=== PATIENT | male | born 1965 | race Caucasian/White ===

== ENCOUNTER 2017-07-13 11:24 | Inpatient (IN) | payer SELFPAY ==
[~2017-07-13] VITALS: Ht 175.3 cm; Wt 79.4 kg
[2017-07-13 12:02] LABS: GLUCOSE,POINT OF CARE 144 MG/DL (70-110)
[2017-07-13 12:15] LABS: EOSINOPHILS % (AUTO) 1.5 % (1.0-6.0); HEMOGLOBIN 14.6 g/dL (13.5-17.5); LYMPHOCYTES # (AUTO) 2.1 K/uL (1.0-4.8); LYMPHOCYTES % (AUTO) 27.1 % (22.0-44.0); MEAN CORPUSCULAR HEMOGLOBIN 30.2 pg (26.0-34.0); MEAN CORPUSCULAR HGB CONC 34.8 G/dL (31.0-37.0); MEAN CORPUSCULAR VOLUME 87 fL (80-100); MONOCYTES # (AUTO) 0.7 K/uL (0.1-1.0); MONOCYTES % (AUTO) 9.2 % (2.0-9.0); NEUTROPHILS # (AUTO) 4.6 K/uL (1.8-7.7); NEUTROPHILS % (AUTO) 61.2 % (40.0-70.0); PLATELET COUNT (AUTO) 179 K/uL (150-450); RED BLOOD CELL COUNT(AUTO) 4.84 MIL/uL (4.50-5.90); RED CELL DISTRIBUTION WIDTH 12.8 % (11.5-14.5); WHITE BLOOD COUNT (AUTO) 7.6 K/uL (4.5-11.0)
[2017-07-13 12:26] LABS: ANION GAP 9 mmol/L (8-16); CALCIUM, TOTAL 9.1 mg/dL (8.8-10.5); CARBON DIOXIDE 26 mmol/L (22-29); CHLORIDE 102 mmol/L (98-107); CREATININE 0.82 mg/dL (0.60-1.30); GLOMERULAR FILTR. RATE CALC > 60 mL/min (>60); POTASSIUM 3.5 mmol/L (3.5-5.1); SODIUM SERUM 137 mmol/L (136-145); UREA NITROGEN, BLOOD 18 mg/dL (7-18)
[2017-07-13 12:32] LABS: ALANINE AMINOTRANSFERASE 59 U/L (12-78); ALBUMIN 4.3 g/dL (3.4-5.0); ASPARTATE AMINOTRANSFERASE 46 U/L (15-37); BILIRUBIN,TOTAL 0.8 mg/dL (0.1-1.0)
[2017-07-13] MEDS ORDERED: LORazepam 2 MG TABLET PO ONE (15:15)
[2017-07-13] MEDS ORDERED: RisperiDONE 1 MG TABLET PO ONE (15:15)
[2017-07-13] MEDS ORDERED: HALOPERIDOL 5 MG TABLET PO PRN (15:45)
[2017-07-13] MEDS ORDERED: LORazepam 2 MG TABLET PO PRN (15:45)
[2017-07-13] MEDS ORDERED: ZOLPIDEM TARTRATE 10 MG TABLET PO PRN (15:45)
[2017-07-13 17:13] VITALS: BP 118/60
[2017-07-13] MEDS: RisperiDONE 2 MG TABLET PO SCH (21:00)
[2017-07-14 06:31] VITALS: BP 108/66
[2017-07-14 08:10] LABS: CHOL/HDL RATIO 2.5 (4.2-7.3)
[2017-07-14 09:17] VITALS: BP 102/64
[2017-07-14 16:00] VITALS: BP 113/68
[2017-07-14] MEDS: RisperiDONE 2 MG TABLET PO SCH (20:16)
[2017-07-15 00:44] VITALS: BP 138/72
[2017-07-15 08:00] VITALS: BP 108/65
[2017-07-15] MEDS ORDERED: IBUPROFEN 600 MG TABLET PO PRN (10:30)
[2017-07-15 16:00] VITALS: BP 124/69
[2017-07-15] MEDS: RisperiDONE 2 MG TABLET PO SCH (20:22)
[2017-07-16 06:31] VITALS: BP 118/62
[2017-07-16 08:05] VITALS: BP 107/68
[2017-07-16 16:00] VITALS: BP 114/72
[2017-07-16] MEDS: RisperiDONE 2 MG TABLET PO SCH (20:30)
[2017-07-17 06:19] VITALS: BP 105/63
[2017-07-17 08:08] VITALS: BP 108/56
[2017-07-17] MEDS ORDERED: RISP2 PO (11:51)
== END 2017-07-17 13:59 | disposition home or self-care (01) | DRG 885 ==
LOC: EMS 11:26 → B3A 16:17
PROVIDERS: ADMIT Psychiatry & Neurology Child & Adolescent Psychiatry; ATTEND Psychiatry & Neurology Child & Adolescent Psychiatry
DX: F29 Unspecified psychosis not due to a substance or known physiological condition (principal); F15.10 Other stimulant abuse, uncomplicated; F41.9 Anxiety disorder, unspecified; K52.9 Noninfective gastroenteritis and colitis, unspecified
CPT/HCPCS: 82962; 83036; 87081; 99285; G0480

== ENCOUNTER 2021-04-08 08:36 | Emergency (ER) | payer MEDICAID ==
[~2021-04-08] VITALS: Ht 167.6 cm; Wt 72.7 kg
[~2021-04-08 08:36] MED LIST: RISP2TAB45 PO
[2021-04-08 09:12] VITALS: BP 115/89
[2021-04-08] MEDS ORDERED: ACETAMINOPHEN 500 MG TABLET PO ONE (09:30)
== END 2021-04-08 10:25 | disposition home or self-care (01) ==
LOC: EMS 08:41 → EDBD 08:41 → EMS 10:25
DX: S00.93XA Contusion of unspecified part of head, initial encounter (principal); F19.90 Other psychoactive substance use, unspecified, uncomplicated; Z86.59 Personal history of other mental and behavioral disorders; Z59.0 Homelessness; Y04.2XXA Assault by strike against or bumped into by another person, initial encounter; Y93.01 Activity, walking, marching and hiking; Y92.89 Other specified places as the place of occurrence of the external cause; Y99.8 Other external cause status
CPT/HCPCS: 99283